=== PATIENT | female | born 1985 | race Caucasian/White ===

== ENCOUNTER 2025-07-13 16:44 | Outpatient (REF) | payer BC, SELFPAY ==
--- OUTSIDE RECORDS SUMMARY | 2025-07-13 08:50 | XMS_ITS | Encounter Summary ---
Author Organization [facility] Address [address] [place] [address] Care Team Providers Care Blood Bank Worker Name Role Phone Solange Handley NP Unavailable [phone] Jose R Gandhi MD Unavailable [phone] Iglesia Tse MD Primary Care Provider [phone] Solange Handley FIRST AID TEACHER Unavailable [phone] Reason for Visit * ReasonCommentsGynecologic Exam Encounter Details DateTypeDepartmentCare Team (Latest Contact Info)Oskpckgydxr00/02/2025 8:50 AM ESTProcedure Visit [facility] [address] [place] [address] Shanelle Gaxiola PA [address] [place] [address] Vaginal discharge; Vaginal itching; Vaginal odor; Well woman exam with routine gynecological exam Social History Tobacco UseTypesPacks/DayYears UsedDateSmoking Tobacco: FormerCigarettes Smokeless Tobacco: NeverCommentsUnknownSex and Gender InformationValue Date RecordedSex Assigned at BirthNot on fileLegal EduNqvwxa10/15/2023 6:38 PM EDTGender IdentityNot on fileSexual OrientationNot on filedocumented as of this encounter Last Filed Vital Signs Vital SignReadingTime TakenCommentsBlood Sxqyosof539/7607/13/2025 8:53 AM EST Pulse--Temperature--Respiratory Rate--Oxygen Saturation--Inhaled Oxygen Concentration--Vjtbvd26.1 kg (170 lb)07/13/2025 8:53 AM ESTHeight--Body Mass Index30.11008/14/2024 11:41 AM ESTdocumented in this encounter Progress Notes * QUIN Mena - 07/13/2025 8:50 AM EST Reason for Appointment: Patient ID: Rosa Cain is a 39 y.o. female who presents for Gynecologic Exam Patient presents today for STD Check. And annual MEDICATIONS Current Outpatient Medications Medication Instructions metroNIDAZOLE (FLAGYL) 500 mg, 2 times daily ALLERGIES Allergies Allergen Reactions Penicillins Unknown PROBLEMS Active Ambulatory Problems Diagnosis Date Noted Acute non-recurrent pansinusitis 08/14/2024 History of sleeve gastrectomy 07/28/2021 Class 1 obesity due to excess calories without serious comorbidity with body mass index (BMI) of 30.0 to 30.9 in adult 08/14/2024 Resolved Ambulatory Problems Diagnosis Date Noted No Resolved Ambulatory Problems No Additional Past Medical History HISTORY PAST MEDICAL HISTORY SOCIAL HISTORY No past medical history on file. Social History Tobacco Use Smoking status: Former Types: Cigarettes Smokeless tobacco: Never Substance Use Topics Alcohol use: Not on file Drug use: Not on file FAMILY HISTORY No family history on file. SURGICAL HISTORY Past Surgical History: Procedure Laterality Date BARIATRIC SURGERY CHOLECYSTECTOMY TOTAL ABDOMINAL HYSTERECTOMY REVIEW OF SYSTEMS Review of Systems: Review of Systems Constitutional: Negative. HENT: Negative. Eyes: Negative. Respiratory: Negative. Cardiovascular: Negative. Gastrointestinal: Negative. Genitourinary: Negative. Musculoskeletal: Negative. Skin: Negative. Neurological: Negative. All other systems reviewed and are negative. Hematological: Negative. Endocrine: Negative. Allergic/Immunologic: Negative. OBJECTIVE Objective: Physical Exam Constitutional: Appearance: Normal appearance. Genitourinary: Right Adnexa: not tender and no mass present. Left Adnexa: not tender and no mass present. No cervical discharge. Breasts: Breasts are soft. Right: Normal. Left: Normal. HENT: Head: Normocephalic. Nose: Nose normal. Mouth/Throat: Mouth: Mucous membranes are moist. Cardiovascular: Rate and Rhythm: Normal rate. Pulmonary: Effort: Pulmonary effort is normal. Abdominal: General: Bowel sounds are normal. Palpations: Abdomen is soft. Musculoskeletal: General: Normal range of motion. Cervical back: Normal range of motion. Neurological: General: No focal deficit present. Mental Status: She is alert. Skin: General: Skin is warm and dry. Psychiatric: Mood and Affect: Mood normal. Vitals and nursing note reviewed. Exam conducted with a shelf drier operator present. Vitals: Estimated body mass index is 31.71 kg/m?? as calculated from the following: Height as of 08/14/24: 5' 3 . Weight as of 08/14/24: 179 lb. BP: No LMP recorded. ASSESSMENT & PLAN ICD-10-CM 1. Vaginal discharge N89.8 2. Vaginal itching N89.8 Assessment/Plan Annual Exam: Patient presents today for an annual exam. Patient states she is doing well states concerns for vaginal odor, cultures obtained. Pap was obtained without difficulty. Orders Placed This Encounter Procedures HPV DNA probe, amplified CHLAMYDIA TRACHOMATIS (GENITO/STI) Neisseria gonorrhea DNA probe, direct Follow Up: Patient is to return in one year for annual unless needed otherwise. Documented by Michelle Meza CST on behalf of: QUIN Mena documented in this encounter Plan of Treatment NameTypePriorityAssociated DiagnosesOrder ScheduleSURESWAB(R) ADVANCED VAGINITIS PLUS, TMAPathology and CytologyRoutine Vaginal discharge Vaginal itching Ordered: 07/13/2025HLAMYDIA TRACHOMATIS (GENITO/STI)LabRoutine Vaginal discharge Vaginal itching Ordered: 07/13/2025Neisseria gonorrhea DNA probe, directLabRoutine Vaginal discharge Vaginal itching Ordered: 07/13/2025Pap SmearPathology and CytologyRoutine Well woman exam with routine gynecological exam Ordered: 07/13/2025HPV DNA probe, amplifiedMicrobiologyRoutine Well woman exam with routine gynecological exam Ordered: 07/13/2025documented as of this encounter Visit Diagnoses Diagnosis Vaginal discharge Leukorrhea, not specified as infective Vaginal itching Pruritus of genital organs Vaginal odor Unspecified symptom associated with female genital organs Well woman exam with routine gynecological exam Routine gynecological examination documented in this encounter Care Teams Team MemberRelationshipSpecialtyStart DateEnd Date Jose R Gandhi MD [address] [place] [address] PCP - External PCPFamily Hzjkozkv54/1/23 Iglesia Tse MD [address] [place] [address] [facility] - [facility]/24 Solange Handley NP [address] [place] [address] Nurse PractitionerFacharles [facility] hospital Eizieqjr40/1/23 Solange Handley NP [address] [place] [address] Nurse Pract[facility]erRe[facility] Medicine08/14/24documented as of this encounter
--- OUTSIDE RECORDS SUMMARY | 2025-07-13 16:49 | XMS_ITS | Encounter Summary ---
Author Organization [facility] Address [address] [place] [address] Care Team Providers Care University Archivist Name Role Phone Solange Handley DIRECTOR CASE MANAGEMENT Unavailable [phone] Jose R Gandhi MD Unavailable [phone] Iglesia Tse MD Primary Care Provider [phone] Solange Handley DIRECTOR CASE MANAGEMENT Unavailable [phone] Encounter Details DateTypeDepartmentCare Team (Latest Contact Info)Jwoqsqqdccn97/02/2025Bamboo flowsheet [facility] [address] [place] [address] Shanelle Gaxiola PA [address] [place], [facility] Social History Tobacco UseTypesPacks/DayYears UsedDateSmoking Tobacco: FormerCigarettes Smokeless Tobacco: NeverCommentsUnknownSex and Gender InformationValue Date RecordedSex Assigned at BirthNot on fileLegal NcjVowlks36/15/2023 6:38 PM EDTGender IdentityNot on fileSexual OrientationNot on filedocumented as of this encounter Plan of Treatment Not on file documented as of this encounter Visit Diagnoses Not on filedocumented in this encounter Care Teams Team MemberRelationshipSpecialtyStart DateEnd Date Jose R Gandhi MD [address] [place] [address] PCP - External PCPFamily Xxgukwqd72/1/23 Iglesia Tse MD [address] [place] [phone] [facility] - [facility]08/14/24 Solange Handley NP [address] [place] [address] Nurse PractitionerFamclean hospital Sihueous17/1/23 Solange Handley NP [address] [place] [address] [facility] Medicine08/14/24documented as of this encounter
--- OUTSIDE RECORDS SUMMARY | 2025-07-13 16:49 | XMS_ITS | Clinical Summary ---
Author Organization [employer] [facility] Address [id number] [place] [address] Care Team Providers Care Accounting File Clerk Name Role Phone Solange Handley APRN-SUPERVISOR MAINTENANCE Primary Care Provider Allergies Active AllergyReactionsCriticalityNoted RbluZncreuveEaovlwwkwho83/07/2019 Medications MedicationSigDispense QuantityRefillsLast FilledStart DateEnd DateStatus escitalopram (LEXAPRO) 10 mg tablet Take 10 mg by mouth daily.Active ondansetron ODT (ZOFRAN ODT) 8 mg disintegrating tablet Dissolve 1 tablet (8 mg total) on tongue every 8 (eight) hours as needed for nausea or vomiting. 20 tablet Active Additional Information Patient not taking.Reported on 02/05/2020 vit 10-iron fum-folic 65-1 mg tablet Indications:Intestinal malabsorption, unspecified type,Malnutrition, unspecified typeTake 1 tablet by mouth daily. 90 tablet Active Additional Information Patient not taking.Reported on 07/22/2020 syringe with needle (BD LUER-DEYANIRA SYRINGE) 3 mL 25 x 1 1/2 syringe Indications:Intestinal malabsorption, unspecified type,Malnutrition, unspecified type,B12 deficiency1 SYRG by miscellaneous route every 14 (fourteen) days. 5 Syringe 08/21/2019Active cyanocobalamin (VITAMIN B-12) 1,000 mcg/mL injection Indications:Intestinal malabsorption, unspecified type,Malnutrition, unspecified type,B12 deficiencyInject 1 mL (1,000 mcg total) into the appropriate muscle every 14 (fourteen) days. 5 mL 08/21/2019Active cholecalciferol, vitamin D3, 50,000 units tablet Indications:Intestinal malabsorption, unspecified type,Malnutrition, unspecified type,Vitamin D deficiency,History of sleeve gastrectomyTake 1 tablet (50,000 Units total) by mouth 2 (two) times a week. 24 tablet Active vit 10-iron fum-folic 65-1 mg tablet Indications:Intestinal malabsorption, unspecified type,Malnutrition, unspecified type,History of sleeve gastrectomyTake 1 tablet by mouth daily. 90 tablet Active cyanocobalamin (VITAMIN B-12) 1,000 mcg/mL injection Indications:Intestinal malabsorption, unspecified type,Malnutrition, unspecified type,History of sleeve gastrectomy,Vitamin B12 deficiencyInject 1 mL (1,000 mcg total) into the appropriate muscle every 14 (fourteen) days. 3 mL Active syringe with needle (BD LUER-DEYANIRA SYRINGE) 3 mL 25 x 1 1/2 syringe Indications:Intestinal malabsorption, unspecified type,Malnutrition, unspecified type,History of sleeve gastrectomy,Vitamin B12 deficiency1 SYRG by miscellaneous route every 14 (fourteen) days. 3 Syringe Active cyanocobalamin (VITAMIN B-12) 1,000 mcg/mL injection Indications:Postsurgical malabsorption,Malnutrition following gastrointestinal surgery,History of sleeve gastrectomy,Low vitamin B12 levelInject 1 mL (1,000 mcg total) into the appropriate muscle every 14 (fourteen) days. 6 mL ctive syringe with needle (BD LUER-DEYANIRA SYRINGE) 3 mL 25 x 1 1/2 syringe Indications:Postsurgical malabsorption,Malnutrition following gastrointestinal surgery,History of sleeve gastrectomy,Low vitamin B12 level1 SYRG by miscellaneous route every 14 (fourteen) days. 6 each ctive vit 10-iron fum-folic 65-1 mg tablet Indications:Postsurgical malabsorption,Malnutrition following gastrointestinal surgery,History of sleeve gastrectomyTake 1 tablet by mouth daily. 90 tablet ctive Active Problems ProblemNoted DateDiagnosed DateHistory of sleeve ubhhxkzqkze44/17/2021Other bdvvygb5005/15/2019 Resolved Problems ProblemNoted DateDiagnosed DateResolved DateObesity, Class II, BMI 35-39.9 Morbid jzitrbs53Obesity, Class III, BMI 40-49.9 (morbid obesity)Gastroesophageal reflux disease without yktvzktgrbn88 Immunizations ImmunizationAdministration DatesNext ZiwXWD57,03/21/1987,01/17/1987 Hepatitis B011/15/2015,10/14/2015Polio, Kypxzfluvnt07/10/1987,01/17/1987Tdap 03/07/2012 Family History Medical HistoryRelationNameCommentsNo Known ProblemsBrotherNo Known Problems FatherHeart attackMaternal GrandfatherDiabetesMotherHypertensionMotherBreast cancerPaternal GrandmotherNo Known ProblemsSisterAnesthesia problemsNeg Hx RelationNameStatusCommentsBrotherAliveFatherAliveMaternal GrandfatherDeceased MotherAlivePaternal GrandmotherDeceasedSisterAlive Social History Tobacco UseTypesPacks/DayYears UsedDateSmoking Tobacco: FormerCigarettes0.084689 - 2019Smokeless Tobacco: NeverAlcohol UseStandard Drinks/WeekCommentsNot Currently0 (1 standard drink = 0.6 oz pure alcohol)ChildcareAnswerDate Recorded QxvzlxrteSmpjuvv71/12/2019EmploymentAnswerDate RecordedEmploymentUnknown 01/21/2019Purpose - LifeAnswerDate RecordedPurpose and direction in lifeUnknown 1CommentsNoSex and Gender InformationValueDate RecordedSex Assigned at BirthNot on fileLegal PgxJqsvcj44/06/2015 11:33 AM EDTGender IdentityNot on fileSexual OrientationNot on file Last Filed Vital Signs Vital SignReadingTime TakenCommentsBlood Aqbzmkny353/7407/28/2021 9:50 AM EST Qsvbq017507/28/2021 9:50 AM AHTBzmrugjjtwl40.5 ??C (97.7 ??F)07/28/2021 9:50 AM ESTRespiratory Mevm601509/28/2020 9:50 AM ESTOxygen Hbjozjsilo76%08/13/2019 11:46 AM ESTInhaled Oxygen Concentration--Wajitj50.9 kg (165 lb 3.2 oz)07/28/2021 9:50 AM JSJMikyqw233 cm (5' 2.99 )07/28/2021 9:50 AM ESTBody Mass Index29.27 07/28/2021 9:50 AM EST Plan of Treatment Health MaintenanceDue DateLast DoneCommentsDepression Icqqwwuke80/28/1999Tobacco Ilckmuqdc63/28/1999Adult BMI Lciuriavr55/28/2005Pap Smear DTaP,Tdap and Td Vaccines (5 - Td or Tdap)/, 05/30/1987, 03/21/1987, Additional history existsCOVID-19 Vaccine ( season) /01/2021, 03/22/2021Influenza Eckzvlj88 Goals GoalPatient Goal TypeAssociated ProblemsRecent ProgressPatient-Stated?Author Home GeneralYesCanales, Shanelle Brown, RN Note: Evaluation of progress towards goal: Patients goal is to discharge to home. Medical Devices Not on file Insurance Advance Directives * Full Code (Latest Code Status on File) Date ActivatedDate CgmqtpzgsqzGctnrazr82/31/2019 6:01 PM08/13/2019 4:21 PM Care Teams Team MemberRelationshipSpecialtyStart DateEnd Date Solange Handley, GYPSY-SUPERVISOR MAINTENANCE PCP - GeneralNurse Suannbrvgzge88/10/20
--- OUTSIDE RECORDS SUMMARY | 2025-07-13 16:49 | XMS_ITS | Clinical Summary ---
Author Organization [facility] Address [address] [place] [address] Care Team Providers Care Tool And Gauge Inspector Name Role Phone Solange Handley NP Unavailable [phone] Jose R Gandhi MD Unavailable [phone] Iglesia Tse MD Primary Care Provider [phone] Solange Handley NP Unavailable [phone] Allergies Active AllergyReactionsCriticalityNoted FfcpMamfdnfeUqqjcevfkktYcveayd24/07/2019 Medications MedicationSigDispense QuantityRefillsLast FilledStart DateEnd DateStatus metroNIDAZOLE (Flagyl) 500 MG tablet Take 500 mg by mouth in the morning and 500 mg before bedtime.5Active metroNIDAZOLE (Flagyl) 500 MG tablet Indications:Vaginal odorTake 1 tablet (500 mg) by mouth in the morning and 1 tablet (500 mg) before bedtime. Do all this for 7 days. Do not drink alcohol while taking this medication. 14 tablet 515Active Active Problems ProblemNoted DateDiagnosed DateAcute non-recurrent qafccpkuqznj42/03/2025 Assessment & Plan (08/14/2024 12:14 PM EST): Take antibiotics BID for 10 days. Use prednisone for inflammation. Use sudafed or other decongestants as needed. Use Robitussin or Robitussin-DM for cough. Can use afrin for congestion but no longer than 3 days. Can use Mucinex to bring up phlegm. Use Motrin or Tylenol as needed for fever, aches, or pains. Increase fluid intake and rest. Should improve over next 5-7 days and if no better or worsecall for re-evaluation. Class 1 obesity due to excess calories without serious comorbidity with body mass index (BMI) of 30.0 to 30.9 in adult08/14/2024History of sleeve gastrectomy 07/28/2021 Encounters DateTypeDepartmentCare FbguEbrccwrroce71/02/2025 8:50 AM ESTProcedure Visit [facility] [address] [place] [address] Shanelle Gaxiola PA Vaginal discharge; Vaginal itching; Vaginal odor; Well woman exam with routine gynecological exam07/13/2025amboo flowsheet [facility] [address] [place] [address] Shanelle Gaxiola PA from Last 3 Months Social History Tobacco UseTypesPacks/DayYears UsedDateSmoking Tobacco: FormerCigarettes Smokeless Tobacco: Never Tobacco Cessation:Counseling Given: Not Answered CommentsUnknownSex and Gender InformationValueDate RecordedSex Assigned at BirthNot on fileLegal WyoXsrzog70/15/2023 6:38 PM EDTGender IdentityNot on fileSexual OrientationNot on file Last Filed Vital Signs Vital SignReadingTime TakenCommentsBlood Pbcqajhj354/7607/13/2025 8:53 AM EST Tiamh2455/03/2025 11:41 AM ILQCgzxopbican52 ??C (98.6 ??F)08/14/2024 11:41 AM ESTRespiratory Bvbw443608/14/2024 11:41 AM ESTOxygen Dbobutrqvi37%08/14/2024 11:41 AM ESTInhaled Oxygen Concentration--Fyqahd93.1 kg (170 lb)07/13/2025 8:53 AM EST Wxclja526 cm (5' 3 )08/14/2024 11:41 AM ESTBody Mass Index30.11008/14/2024 11:41 AM EST Plan of Treatment Health MaintenanceDue DateLast DoneCommentsPap Smear2007Cervical Cancer Cdtdgshrg29/28/2017HPV/Sqoafd2310/09/2016COVID-19 Vaccine ( season) 503/11/2021, 04/17/2021, 03/22/2021Influenza Vaccine (#1)2025 10/21/2023, 05/30/2020Pneumococcal Vaccine: Pediatrics (0 to 5 Years) and At- Risk Patients (6 to 64 Years)Aged OutNo longer eligible based on patient's age to complete this topic Insurance Care Teams Team MemberRelationshipSpecialtyStart DateEnd Date Jose R Gandhi MD [address] [place] [address] PCP - External PCPFamily Ymrabxlc11/1/23 Iglesia Tse MD [address] [place] [address] PCP - GeneralFamily Medicine08/14/24 Solange Handley NP [address] [place] [address] Nurse PractitionerFamily Cndbncoa15/1/23 Solange Handley NP [address] [place] [address] Nurse PractitionerFaWellstar [facility]08/14/24
== END 2025-07-13 16:45 | disposition home or self-care (01) ==
LOC: LAB 16:44
PROVIDERS: PCP Nurse Practitioner; Visit Provider Physician Assistant
DX: Z01.419 Encounter for gynecological examination (general) (routine) without abnormal findings (principal)
CPT/HCPCS: 87624; 88175